=== PATIENT | male | born 1985 | race Hispanic/Latino ===

== ENCOUNTER 2020-11-16 00:46 | Emergency (ER) | payer SELFPAY ==
[2020-11-16] VITALS (9 sets, daily range): BP systolic 114–136; BP diastolic 75–92; PULSE 74–121; RESP 12–22; TEMP 36.6; O2SAT 98–100
--- NOTE | ~2020-11-16 | XR_ITS ---
EXAMINATION: XR chest 1V portable INDICATION: Chest pain TECHNIQUE: Portable AP chest at 0419 hours COMPARISON: None available FINDINGS: The lung volumes are low. The lungs are free of acute opacities. There is no pleural effusi on or pneumothorax. The cardiomediastinal silhouette is normal. IMPRESSION: 1. No acute cardiopulmonary abnormality. Reviewed, dictated and finalized at location A.
--- NOTE | 2020-11-16 00:50 | ECG_ITS ---
Measurements Intervals [place] Rate: 115 P: 68 SD: 122 QRS: 52 QRSD: 81 T: 46 QT: 317 QTc: 439 Interpretive Statements SINUS TACHYCARDIA POSSIBLE LEFT ATRIAL ENLARGEMENT INCOMPLETE RIGHT BUNDLE BRANCH BLOCK ABNORMAL ECG Electronically Signed On 11-16-2020 6:12:35 CDT by Lex Willard D.O.
[2020-11-16] MEDS: NALOXONE HCL INJ 2 MG/2 ML AMP IV PUSH (01:09)
[2020-11-16] MEDS: SODIUM CHLORIDE 0.9% IV 1,000 ML 999 ML IV CONT (01:09)
[2020-11-16 01:15] LABS: Basophils Absolute Auto 0.1 K/mm3 (0.0-0.1); Basophils Percent Auto 0.9 % (0.2-1.2); Eosinophils Absolute Auto 0.1 K/mm3 (0-0.3); Eosinophils Percent Auto 1.2 % (0-4.4); Hematocrit 46.5 % (37.0-47.0); Hemoglobin 15.9 g/dL (12.0-15.0); Immature Granulocyte Absolute 0.01 K/mm3 (0.00-0.031); Immature Granulocyte Percent A 0.1 % (0-0.5); Lymphocytes Absolute Auto 1.72 K/mm3 (0.9-3.2); Lymphocytes Percent Auto 24.7 % (18.3-44.2); Mean Corpuscular HGB Conc 34.2 g/dl (32-36); Mean Corpuscular Hemoglobin 30.9 pg (26-34); Mean Corpuscular Volume 90.5 fl (80-100); Mean Platelet Volume 8.7 fl (7.4-10.4); Monocytes Absolute Auto 0.7 K/mm3 (0.1-0.6); Monocytes Percent Auto 10.1 % (2.6-8.5); Neutrophils Absolute Auto 4.4 K/mm3 (1.3-6.7); Platelet Count Result 271 k/mm3 (150-375); Red Blood Count 5.14 M/mm3 (4.2-5.4); Red Cell Distribution Width 12.6 % (11.5-14.5)
--- NOTE | 2020-11-16 01:19 | PC.NURSE ---
Pt A&Ox4 on stretcher, arousable to name. Able to provide urine sample for collection. Pt appears fatigued, but cooperative. Law enforcement at bedside.
[2020-11-16 01:22] LABS: Ethanol 83 mg/dL (<10); Salicylate < 1.0 mg/dL (2-20)
--- NOTE | 2020-11-16 01:26 | ED.GENADULT ---
HPI - General Adult General Chief complaint: Overdose <Nick Canales MD - Last Filed: 11/16/20 01:29> Stated complaint: meth ingestion <Nick Canales MD - Last Filed: 11/16/20 01:29> Time Seen by Provider: 11/16/20 00:50 <Nick Canales MD - Last Filed: 11/16/20 01:29> History of Present Illness HPI narrative: Patient 35-year-old gentleman who presents the emergency department with chief complaint of substance ingestion. Patient reports he was involved in a traffic stop and ingested some unknown drugs. Patient states that he denies suicidal or homicidal ideation patient was brought in by EMS and police for medical clearance. Patient states that he took these just prior to arrival in the emergency department patient was extremely drowsy in the field and was given Narcan by EMS. The patient believes that he took methamphetamine <Nick Canales MD - Last Filed: 11/16/20 01:29> Related Data Home medications: Home Medications Medication Instructions Recorded Confirmed Unable to Obtain Home Medications 11/16/20 11/16/20 <Nick Canales MD - Last Filed: 11/16/20 01:29> Allergies/adverse reactions: Allergies Allergy/AdvReac Type Severity Reaction Status Date / Time Unable to Assess Allergy Verified 11/16/20 00:54 <Nick Canales MD - Last Filed: 11/16/20 01:29> Review of Systems Review of Systems: A 10 system review of systems was completed on the patient and is negative except for what is stated in the HPI. Nursing and ancillary documentation was reviewed. <Nick Canales MD - Last Filed: 11/16/20 01:29> Exam Narrative: GENERAL: Well-appearing, well-nourished, and in no acute distress. HEAD: Normocephalic, atraumatic. EYES: PERRLA and EOMI. ENT: Nares clear, no rhinorrhea or epistaxis. Mucous membranes moist. NECK: Supple. CHEST: Clear to auscultation. No respiratory distress. HEART: Regular rate and rhythm. No murmur heard. Normal peripheral pulses. ABDOMEN: Soft, nontender, nondistended, normal active bowel sounds. EXTREMITIES: Normal range of motion. No edema. SKIN: Warm, dry, no rash. NEURO: No focal deficits. Alert and oriented x3. Drowsy and slow to respond PSYCH: Normal mood and affect. <Nick Canales MD - Last Filed: 11/16/20 01:29> Course Reevaluation(s) Reevaluation #1: Currently patient is awake, alert oriented x4, ready to go with the police <Nelia Krause MD - Last Filed: 11/16/20 10:19> Date: 11/16/20 <Nelia Krause MD - Last Filed: 11/16/20 10:19> Time: 10:17 <Nelia Krause MD - Last Filed: 11/16/20 10:19> Vital Signs Vital signs: Vital Signs Temperature 36.6 C 11/16/20 00:47 Pulse Rate 118 H 11/16/20 00:47 Respiratory Rate 17 11/16/20 00:47 Blood Pressure 136/90 11/16/20 00:47 Pulse Oximetry 99 11/16/20 00:47 Temperature 36.6 C 11/16/20 00:47 Pulse Rate 121 H 11/16/20 07:32 Respiratory Rate 22 H 11/16/20 07:32 Blood Pressure 118/92 H 11/16/20 07:32 Pulse Oximetry 100 11/16/20 07:32 <Nick Canales MD - Last Filed: 11/16/20 01:29> Vital Signs Temperature 36.6 C 11/16/20 00:47 Pulse Rate 118 H 11/16/20 00:47 Respiratory Rate 17 11/16/20 00:47 Blood Pressure 136/90 11/16/20 00:47 Pulse Oximetry 99 11/16/20 00:47 Temperature 36.6 C 11/16/20 00:47 Pulse Rate 121 H 11/16/20 07:32 Respiratory Rate 22 H 11/16/20 07:32 Blood Pressure 118/92 H 11/16/20 07:32 Pulse Oximetry 100 11/16/20 07:32 <Nelia Krause MD - Last Filed: 11/16/20 10:19> Medical Decision Making Vital Signs Vital Signs: Vital Signs Temperature 36.6 C 11/16/20 00:47 Pulse Rate 118 H 11/16/20 00:47 Respiratory Rate 17 11/16/20 00:47 Blood Pressure 136/90 11/16/20 00:47 Pulse Oximetry 99 11/16/20 00:47 Temperature 36.6 C 11/16/20 00:47 Pulse Rate 1
[2020-11-16 01:27] LABS: Add Urine Microscopic? YES; Appearance Urine Clear (Clear); Bilirubin Urine Negative (Negative); Blood Urine Negative (Negative); Color Urine Yellow (Yellow); Glucose Urine UA Negative (Negative); Ketones Urine Negative (Negative); Leukocyte Esterase Ur Negative LEU/UL (Negative); Mucus Urine Rare /lpf; Nitrate Urine Negative (Negative); Protein Urine 1+ mg/dL (Negative); RBC Urine 0-2 /hpf (0-2); Specific Grav Ur 1.027 (1.001-1.035); Squamous Epithelial Cell Urine Rare /hpf (Few); WBC Urine 0-3 /hpf
[2020-11-16 01:28] LABS: Glucose Point of Care 95 mg/dl (65-105)
[2020-11-16 01:38] LABS: Alanine Aminotransferase 16 U/L (4-50); Albumin Level 4.4 g/dL (3.5-5.1); Alkaline Phosphatase 68 U/L (38-126); Anion Gap 11 mmol/L (8-16); Aspartate Amino Transferase 24 U/L (17-59); Bilirubin,Total 0.7 mg/dL (0.2-1.3); Blood Urea Nitrogen 12 mg/dL (9-20); Calcium 9.5 mg/dL (8.4-10.2); Carbon Dioxide 23 mmol/L (22-30); Chloride 106 mmol/L (98-107); Estimated Glomerular Filt Rate > 60; Glucose 91 mg/dL (65-110); Potassium 3.6 mmol/L (3.4-5.0); Sodium 140 mmol/L (137-145)
[2020-11-16 01:40] LABS: Barbiturate Screen Urine Negative (Negative); Benzodiazepines Screen Urine Negative (Negative)
[2020-11-16 01:50] LABS: Acetaminophen < 10 ug/mL (10-30)
[2020-11-16 01:54] LABS: Cannabinoid Screen Urine Positive (Negative); Cocaine Screen Urine Negative (Negative); Methadone Screen Urine Negative (Negative); Opiate Screen Urine Negative (Negative); Phencyclidine Screen Urine Negative (Negative)
[2020-11-16 01:58] LABS: Amphetamine Screen Urine Positive (Negative)
[2020-11-16 02:35] LABS: Troponin I < 0.012 ng/mL (0.000-0.034)
--- NOTE | 2020-11-16 03:18 | PC.NURSE ---
This RN attempted to ambulate pt, per EDP. Pt able to sit up in bed and move lower extremities, but is uncooperative with standing or attempting to ambulate. States he is unable to stand due to burning pain in chest, A&Ox4 at this time. Law enforcement at bedside. EDP notified.
== END 2020-11-16 10:44 ==
PROVIDERS: Emergency Medicine; Emergency Provider Emergency Medicine
DX: F15.10 Other stimulant abuse, uncomplicated (principal); F12.10 Cannabis abuse, uncomplicated
CPT/HCPCS: 36415; 71045; 80053; 80307; 81001; 82948; 84484; 85025; 93005; 96361; 96374; 99284; A9270; J2310; J7030